=== PATIENT | male | born 1990 ===

== ENCOUNTER 2023-03-02 09:19 | Outpatient (RCR) | payer OTHER, SELFPAY ==
[2023-03-02 09:38] VITALS: BMI 35.9
[2023-03-02 10:05] VITALS: BMI 35.9
== END 2023-05-17 10:55 | disposition home or self-care (01) ==
LOC: ANHDMC 09:19
PROVIDERS: Visit Provider Family Medicine
DX: E66.09 Other obesity due to excess calories (principal); Z68.34 Body mass index [BMI] 34.0-34.9, adult; Z71.3 Dietary counseling and surveillance
CPT/HCPCS: 97802